=== PATIENT | female | born 1935 | race African-American/Black ===

== ENCOUNTER 2017-06-28 19:30 | Inpatient (IN) | payer MEDICARE, BC ==
[~2017-06-28] VITALS: Ht 175.3 cm; Wt 57.2 kg
[~2017-06-28 19:30] MED LIST: ACET325T9 PO; CLIN150C14 PO; FERR-26 PO; FLUC100T7 PO; FLUT9.9S NS; Hydrocodone Bit/Acetaminophen PO; LISI-334 PO; LISI10TA PO; PRED20TA PO; SULF-143 PO; TRIA1TAB3 PO; Triamterene/Hydrochlorothiazid PO; VANC1VIA3 MC
--- NOTE | 2017-06-28 19:41 | ED.ADGEN ---
Past History Past Medical History: Hypertension, Other Past Surgical History: No Surgical History, Other Smoking: Non-smoker Alcohol Use: None Drug Use: None Adult General Chief Complaint Chief Complaint " I seen Dr. Walker today for this tickle cough... but it seemed to get worse tonight.. more short of breath.. and some nausea and vomiting..".." I am off the water pill since I had a gout out break about 2 weeks ago in my knee and Lt big toe...".. but my ankles as swelled up...." HPI HPI Patient is a 81 year old female who presents with above hx and complaints of dyspnea, cough, ankle edema, nausea and vomiting. Pt. not feeling well the last couple days. Pt. denies changes in exposures, , bad foods, travel or specific ill contacts. Pt. normally healthy. Pt. localize pain or discomfort in epigastric area. Pt. has had some changes in HTN meds recently. Pt. did note she has some ankle swelling recently. Review of Systems Review of Systems Constitutional: Denies fever or chills [] Eyes: Denies change in visual acuity, redness, or eye pain [] HENT: Denies nasal congestion or sore throat [] Respiratory:Hx. of cough and shortness of breath [] Cardiovascular: No additional information not addressed in HPI [] GI Hx. abdominal pain epigastric, nausea, vomiting,. Denies bloody stools or diarrhea [] : Denies dysuria or hematuria [] Musculoskeletal: Denies back pain or joint pain [] Integument: Denies rash or skin lesions [] Neurologic: Denies headache, focal weakness or sensory changes [] Endocrine: Denies polyuria or polydipsia [] All other systems were reviewed and found to be within normal limits, except as documented in this note. Family History Family History Non-contributory. Current Medications Current Medications Current Medications Medications (Trade) Dose Ordered Sig/[facility] Start Time Stop Time Status Last Admin Dose Admin Aspirin (Mariely Aspirin) 325 mg 1X ONCE 06/28/17 21:30 06/28/17 21:31 DC 06/28/17 21:56 325 MG Ondansetron HCl (Zofran) 8 mg 1X ONCE 06/28/17 20:30 06/28/17 20:31 DC 06/28/17 20:15 8 MG Allergies Allergies Allergies Coded Allergies Type Severity Reaction Last Updated Verified daptomycin Allergy Unknown 01/13/15 Yes vancomycin Allergy Unknown Rash 01/13/15 Yes Physical Exam Physical Exam Constitutional: Well developed, well nourished,in mild distress, non-toxic appearance. [] HENT: Normocephalic, atraumatic, bilateral external ears normal, oropharynx moist, no oral exudates, nose normal. [] Eyes: PERRLA, EOMI, conjunctiva normal, no discharge. [] Neck: Normal range of motion, no tenderness, supple, no stridor. [] Cardiovascular:Tachycardia Heart rate regular rhythm, no murmur [] Lungs & Thorax: Bilateral breath sounds equal apex, few scattered wheezes, bibasilar crackles > lt. on auscultation [] Abdomen: Bowel sounds normal, soft, epigastric tenderness, no masses, no pulsatile masses. [] Skin: Warm, dry, no erythema, no rash. [] Back: No tenderness, no CVA tenderness. [] Extremities: No tenderness, no cyanosis, no clubbing, ROM intact, trace ankle edema. No cording appreciated. Arthritic changes. Neurologic: Alert and oriented X 3, normal motor function, normal sensory function, no focal deficits noted. [] Psychologic: Affect Anxious, judgement normal, mood normal. [] Current Patient Data Vital Signs Vital Signs Date Time Temp Pulse Resp B/P (MAP) Pulse Ox O2 Delivery O2 Flow Rate FiO2 06/28/17 19:56 117 142/76 (98) 06/28/17 19:54 98.0 20 97 Room Air Lab Results Laboratory Tests Test 06/28/17 20:10 White Blood Count 7.3 x10^3/uL (4.0-11.0) Red Blood Count 2.87 x10^6/uL (3.50-5.40) L Hemoglobin 9.6 g/dL (12.0-15.5) L Hematocrit 28.1 % (36.0-47.0) L Mean Corpuscular Volume 98 fL (79-100) Mean Corpuscular Hemoglobin 33 pg (25-35) Mean Corpuscular Hemoglobin Concent 34 g/dL (31-37) Red Cell Distribution Width 13.8 % (11.5-14.5) Platelet Count 233 x10^3/uL (140-400) Neutrophils (%) (Auto) 71 % (31-73) Lymphocytes (%) (Auto) 19 % (24-48) L Monocytes (%) (Auto) 8 % (0-9) Eosinophils (%) (Auto) 1 % (0-3) Basophils (%) (Auto) 0 % (0-3) Neutrophils # (Auto) 5.2 x10^3uL (1.8-7.7) Lymphocytes # (Auto) 1.4 x10^3/uL (1.0-4.8) Monocytes # (Auto) 0.6 x10^3/uL (0.0-1.1) Eosinophils # (Auto) 0.1 x10^3/uL (0.0-0.7) Basophils # (Auto) 0.0 x10^3/uL (0.0-0.2) Prothrombin Time 11.3 SEC (9.4-11.4) Prothrombin Time INR 1.1 (0.9-1.1) PTT 24 SEC (23-33) D-Dimer (Kelly) 2.03 mg/L (0.00-0.50) H Sodium Level 145 mmol/L (136-145) Potassium Level 4.0 mmol/L (3.5-5.1) Chloride Level 111 mmol/L (98-107) H Carbon Dioxide Level 21 mmol/L (21-32) Anion Gap 13 (6-14) Blood Urea Nitrogen 27 mg/dL (7-20) H Creatinine 1.3 mg/dL (0.6-1.0) H Estimated GFR (Cockcroft-Gault) 47.3 BUN/Creatinine Ratio 21 (6-20) H Glucose Level 140 mg/dL (70-99) H Calcium Level 9.2 mg/dL (8.5-10.1) Magnesium Level 1.9 mg/dL (1.8-2.4) Total Bilirubin 0.4 mg/dL (0.2-1.0) Aspartate Amino Transferase (AST) 36 U/L (15-37) Alanine Aminotransferase (ALT) 79 U/L (14-59) H Alkaline Phosphatase 111 U/L (46-116) Creatine Kinase 144 U/L (26-192) Creatine Kinase MB (Mass) 1.4 ng/mL (0.0-3.6) Creatine Kinase MB Relative Index 1.0 % (0-4) Troponin I Quantitative 0.151 ng/mL (0-0.055) H [id number]-[id number]-Type Natriuretic Peptide 8763 pg/mL (0-449) H Total Protein 6.8 g/dL (6.4-8.2) Albumin 3.6 g/dL (3.4-5.0) Albumin/Globulin Ratio 1.1 (1.0-1.7) Lipase 94 U/L (73-393) EKG EKG I interpretation EKG shows a sinus tachycardia at 108. There is some occasional PAC and some nonspecific anterior lateral strain.[] Radiology/Procedures Radiology/Procedures My interpretation of chest x-ray shows cardiomegaly. Some increased cephalization. Left lower pleural thickening and possible infiltrate./ fluid. No free air under the diaphragm. Nonspecific bowel gas pattern. Degenerative joint changes.[] Course & Med Decision Making Course & Med Decision Making Pertinent Labs and Imaging studies reviewed. (See chart for details) Discussed presentation, testing and tx. plan with Dr. Chao- - admit for further eval and tx. [] Final Impression Final Impression 1. Dyspnea[] 2. Nausea and vomiting 3. CHF 4. Anemia 5. Elevated Trop 6. Elevated D-dimer 7. Elevated ALT 8. DM 9. Elevated Creat. 10. Hx. of UTI under Tx- Macrodantin 100 bid Problems: Dragon Disclaimer Dragon Disclaimer This electronic medical record was generated, in whole or in part, using a voice recognition dictation system. CHIQUI FONTANEZ MD Jun 28, 2017 19:41
[2017-06-28] MEDS ORDERED: ONDANSETRON PF 4 MG/2 ML VIAL. ONE (20:05)
[2017-06-28] MEDS ORDERED: ONDANSETRON PF 4 MG/2 ML VIAL. IV ONE (20:30)
[2017-06-28 20:44] LABS: BASO % 0 % (0-3); EOS # 0.1 x10^3/uL (0.0-0.7); EOS % 1 % (0-3); HEMATOCRIT 28.1 % (36.0-47.0); HEMOGLOBIN 9.6 g/dL (12.0-15.5); LYMPH # 1.4 x10^3/uL (1.0-4.8); LYMPH % 19 % (24-48); MEAN CORPUSCULAR HEMOGLOBIN 33 pg (25-35); MEAN CORPUSCULAR HGB CONC 34 g/dL (31-37); MEAN CORPUSCULAR VOLUME 98 fL (79-100); MONO # 0.6 x10^3/uL (0.0-1.1); MONO % 8 % (0-9); NEUT # 5.2 x10^3uL (1.8-7.7); NEUT % 71 % (31-73); PLATELET COUNT 233 x10^3/uL (140-400); RED BLOOD COUNT 2.87 x10^6/uL (3.50-5.40); RED CELL DISTRIBUTION WIDTH 13.8 % (11.5-14.5); WHITE BLOOD COUNT 7.3 x10^3/uL (4.0-11.0)
[2017-06-28 21:04] LABS: ALBUMIN 3.6 g/dL (3.4-5.0); ALBUMIN/GLOBULIN RATIO 1.1 (1.0-1.7); CALCIUM 9.2 mg/dL (8.5-10.1); CREATININE 1.3 mg/dL (0.6-1.0); GFR 47.3; MAGNESIUM 1.9 mg/dL (1.8-2.4); TOTAL BILIRUBIN 0.4 mg/dL (0.2-1.0); TOTAL PROTEIN 6.8 g/dL (6.4-8.2)
[2017-06-28] MEDS ORDERED: ASPIRIN 325 MG TABLET PO ONE (21:30)
[2017-06-28] MEDS ORDERED: ENOXAPARIN ** NOTE DOSE ** SYRINGE SQ ONE (22:00)
[2017-06-28] MEDS ORDERED: FUROSEMIDE 40 MG/4 ML VIAL IVP ONE (22:00)
[2017-06-28] MEDS ORDERED: ALLO100T PO (22:15)
[2017-06-28] MEDS ORDERED: NITR100C63 PO (22:15)
[2017-06-28] MEDS ORDERED: LISI-334 PO (22:16)
[2017-06-28] MEDS ORDERED: MULTIVITAMIN PO (22:26)
[2017-06-28] MEDS ORDERED: CHOL10003 PO (22:26)
[2017-06-28] MEDS ORDERED: OMEP40CA5 PO (22:26)
[2017-06-28] MEDS ORDERED: [UNRECOGNIZED DRUG - OTHER] PO (22:26)
[2017-06-28] MEDS ORDERED: COLC0.6T34 PO (22:26)
[2017-06-28] MEDS ORDERED: iron OTC PO (22:28)
[2017-06-28 22:52] LABS: BACTERIA,URINE 0 /HPF (0-FEW); BILIRUBIN,URINE NEG (NEG); CLARITY,URINE HAZY; COLOR,URINE YELLOW; GLUCOSE,URINE NEG (NEG); NITRITE,URINE NEG (NEG); UROBILINOGEN,URINE 0.2 mg/dL (0.2 mg/dL); WBC,URINE 20-40 /HPF (0-4)
[2017-06-28 22:53] LABS: HYALINE CASTS, URINE FEW /HPF
[2017-06-28 22:54] LABS: BARBITURATES NEG (NEG); BENZODIAZEPINES NEG (NEG); CANNABINOIDS NEG (NEG); COCAINE NEG (NEG); METHADONE NEG (NEG); OPIATES NEG (NEG); PHENCYCLIDINE NEG (NEG)
[2017-06-28 22:55] LABS: AMPHETAMINE/METHAMPHETAMINE NEG (NEG)
[2017-06-28 23:29] VITALS: BP 108/71
[2017-06-28] MEDS ORDERED: levoFLOXacin 500 MG TABLET PO ONE (23:45)
--- NOTE | 2017-06-29 01:38 | RAD ---
Bilateral lower extremity venous Doppler: Reason for examination: Elevated d-dimer. Abdominal pain. Urinary tract infection. No leg complaints. The right and left lower extremity venous systems were evaluated from the common femoral and greater saphenous veins distally to the calf veins with grayscale imaging, color-flow imaging and spectral analysis. There is normal blood flow. No deep venous thrombosis is seen in either lower extremity. There is normal response of the venous systems to compression and augmentation. IMPRESSION: No deep venous thrombosis in the right or left lower extremity. Electronically signed by: Pia Andres MD (06/29/2017 1:35 AM) [facility] [id number]
[2017-06-29 04:50] VITALS: BP 108/71
--- NOTE | 2017-06-29 05:26 | EKG ---
[address] [address] Test Date: 2017-06-28 Test Time: 20:41:02 Pat Name: ANNA PALACIO Department: Room: 109 A Gender: F Jacker: ADAMS : 1935 Requested By: CHIQUI FONTANEZ Order Number: [id number] Reading MD: Darrell Johnson MD Measurements Intervals [place] Rate: 108 P: 47 NM: 146 QRS: 35 QRSD: 86 T: 101 QT: 318 QTc: 430 Interpretive Statements SINUS TACHYCARDIA ATRIAL PREMATURE COMPLEX(ES) Electronically Signed On 06-30-2017 12:38:33 [employer] by Darrell Johnson MD
[2017-06-29 05:49] VITALS: BP 103/72
[2017-06-29] MEDS: COLCHICINE 0.6 MG TABLET PO SCH ×2 (08:07→19:57)
[2017-06-29] MEDS: PANTOPRAZOLE 40 MG TABLET. PO SCH (08:07)
[2017-06-29] MEDS: CHOLECALCIFEROL (VITAMIN D3) 1,000 UNIT TABLET PO SCH (08:07)
[2017-06-29] MEDS: MULTIVITAMIN with MINERAL TABLET. PO SCH (08:07)
[2017-06-29] MEDS: ALLOPURINOL 100 MG TABLET. PO SCH (08:07)
[2017-06-29] MEDS: LISINOPRIL 20 MG TABLET PO SCH (08:08)
[2017-06-29 08:09] LABS: BASO % 0 % (0-3); EOS # 0.1 x10^3/uL (0.0-0.7); EOS % 1 % (0-3); HEMOGLOBIN 8.9 g/dL (12.0-15.5); LYMPH # 1.3 x10^3/uL (1.0-4.8); LYMPH % 24 % (24-48); MEAN CORPUSCULAR HEMOGLOBIN 34 pg (25-35); MEAN CORPUSCULAR HGB CONC 34 g/dL (31-37); MEAN CORPUSCULAR VOLUME 98 fL (79-100); MONO # 0.5 x10^3/uL (0.0-1.1); MONO % 9 % (0-9); NEUT # 3.6 x10^3uL (1.8-7.7); NEUT % 65 % (31-73); PLATELET COUNT 200 x10^3/uL (140-400); RED BLOOD COUNT 2.66 x10^6/uL (3.50-5.40); RED CELL DISTRIBUTION WIDTH 13.3 % (11.5-14.5); WHITE BLOOD COUNT 5.6 x10^3/uL (4.0-11.0)
[2017-06-29 08:25] LABS: ALBUMIN 3.1 g/dL (3.4-5.0); CALCIUM 9.1 mg/dL (8.5-10.1); CREATININE 1.3 mg/dL (0.6-1.0); GFR 47.3; POTASSIUM 4.2 mmol/L (3.5-5.1); TOTAL BILIRUBIN 0.4 mg/dL (0.2-1.0); TOTAL PROTEIN 6.1 g/dL (6.4-8.2)
--- NOTE | 2017-06-29 08:31 | RAD ---
ABDOMEN SUPINE UPRIGHT History:Nausea and vomiting, pain at the diaphragm for 2 days Comparison: 01/13/2015 Findings:Single supine and upright views of the abdomen are submitted. There is mild blunting of the right costophrenic sulcus and very minimally on the left, likely atelectasis left lung base. No free air is identified. There is overall nonobstructive bowel gas pattern. There is multilevel lumbar degenerative disc disease and spondylosis. Impression: 1.There are suspected trace pleural effusions and left basilar atelectasis. 2. There is a nonobstructive bowel gas pattern. 3. There is multilevel lumbar degenerative disc disease and spondylosis.
--- NOTE | 2017-06-29 08:38 | RAD ---
Single view chest History:Dyspnea, nausea for 2 days, pain hemidiaphragm An AP view of the chest is submitted. Comparison: 01/13/2015. Findings: There is now mild blunting of the costophrenic sulci bilaterally, also mild airspace opacity left lung base. There is also some questionable subtle airspace opacity of the right upper lobe. Cardiac silhouette is within normal limits given technique. No pneumothorax is identified. Impression: 1. There are suspected trace pleural effusions bilaterally, mild left base airspace opacity and some questionable subtle right upper lobe airspace opacity.
[2017-06-29 10:51] VITALS: BP 82/60
[2017-06-29] MEDS ORDERED: ENOXAPARIN 30 MG/0.3 ML DISP.SYRIN. SQ SCH (14:00)
--- NOTE | 2017-06-29 15:00 | HP ---
ADMIT DATE: 06/28/2017 HISTORY OF PRESENT ILLNESS: The patient is an 81-year-old female patient who came to the Emergency Room complaining of cough that has apparently worsened overnight. She has also some more shortness of breath, some nausea and vomiting. She apparently stopped taking her hydrochlorothiazide as she had gouty flareup about 2 weeks ago in her knee and left big toe; however, her ankles became swollen up again. She also complained that she has also some localized pain and discomfort mostly in the epigastric area and was extensively investigated in the Emergency Room. Her lab work showed that her B-type natriuretic peptide was elevated at 8763. Her troponin was elevated at 0.151. She has chronic anemia due to normochromic normocytic. However, her white cell count and platelets were normal and apparently has had a chest x-ray as her D-dimer was elevated at 2.03 mg/dL. She has a chest x-ray, which showed there are suspected trace of pleural effusion bilaterally, mild left base airspace opacity, and some questionable subtle right upper lobe airspace opacity. The cardiac silhouette is within normal limits given technique. No pneumothorax is identified. She has a Doppler ultrasound of both lower extremities that was negative for DVT and was admitted and was continued on Lovenox as well as was given 20 mg of Lasix, aspirin, and levofloxacin was continued with her other medication except her hydrochlorothiazide and triamterene. PAST MEDICAL HISTORY: Significant for hypertension, gastroesophageal reflux disease, thyroid nodule, longstanding iron deficiency anemia. PAST SURGICAL HISTORY: Significant for left inguinal hernia repair. ALLERGIES: She is allergic now to vancomycin and daptomycin. FAMILY HISTORY: Positive for anemia in her sister and one of her brothers of myocardial infarction. One of her sisters of myocardial infarction. One of her brothers in motor vehicle accident. Her father at the age of 77 because of myocardial infarction. Mother at the age of 82 because of myocardial infarction. SOCIAL HISTORY: She lives with her . She is a smoker at her anger age, but has not smoked for years. She does not drink alcohol or do any recreational drugs. 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 She works with her daughter. REVIEW OF SYSTEMS: The patient denied any blurring of vision, cataract, glaucoma, or macular degeneration. Denied any earache, tinnitus, or sensorineural deafness. Denied any nosebleeds, stuffy nose, or postnasal drip. Did complain of nausea and vomiting and has also some epigastric pain and swelling of his legs and also some shortness of breath. She did also complain of chest tightness and wheezing; however, she denied any dysuria, frequency or hematuria. Denied any chills, rigors, or fever. Denied any dizziness, lightheadedness, or vertigo. PHYSICAL EXAMINATION: GENERAL: On arrival to the Emergency Room, she was pale, but no jaundice, cyanosis, or thyromegaly. No jugular venous distension. Mild bilateral limb edema. VITAL SIGNS: Her heart rate was 116, blood pressure 142/79, her temperature was 98, respiratory rate 20, and oxygen saturation was 98%. HEAD, EYES, EARS, NOSE AND THROAT: Showed normocephalic, atraumatic. NECK: Supple. HEART: Showed normal first and second heart sound with no gallop, rub, or murmur. CHEST: Clear to auscultation. No crepitation or rhonchi. Apparently, she has scattered wheezing and bibasilar crackles on auscultation. ABDOMEN: Soft, nontender. No guarding or rigidity. Mild epigastric tenderness. No pulsatile masses. SKIN: Warm and dry. EXTREMITIES: All peripheral pulses are easily palpable. There is no clubbing, but mild bilateral ankle edema. NEUROLOGIC: She was awake, alert, oriented in time, place, and person. Cranial nerves intact. She moves extremities without difficulty. LABORATORY DATA: Her lab work while in the Emergency Room showed that her white cell count was 7300, hemoglobin 9.6, hematocrit 28.1, MCV 98 and platelet count of 233,000 with normal manual differential. Her chemistry showed a serum sodium of 145, potassium 4, chloride 111, bicarbonate 21, anion gap of 13, BUN 27, creatinine 1.3, estimated GFR was 47 mL per minute. Her glucose was 140. Calcium was 9.2, magnesium 1.9. Total bilirubin, AST, ALT, alkaline phosphatase were normal. Total protein 6.8, albumin 3.6. Her first set of cardiac enzyme showed troponin to be 0.151, B-type natriuretic peptide was 8763. Serum lipase was 94. TSH was 1.2. Her prothrombin time was 11.3, INR 1.1, aPTT was 24. D-dimer was 2. Urinalysis showed the urine was yellow, hazy with a pH of 5.5, specific gravity of 1.005. The urine was negative for protein, glucose, ketones. There was trace of blood, negative for nitrite, trace of leukocyte esterase, 1-2 rbc's, 20-40 wbc's, but no bacteria. Her toxicology screen was negative for opiates, methadone, barbiturates, phencyclidine, amphetamine, methamphetamine, benzodiazepine, cocaine, and cannabinoids as well as alcohol. Her chest x-ray showed there are suspected areas of trace pleural effusion bilaterally, mild left basilar airspace opacity and some questionable subtle right upper lobe airspace opacity. Abdominal x-ray showed that there are suspected trace pleural effusion, left basilar atelectasis. There is nonobstructive bowel gas pattern. There is multilevel lumbar degenerative disk disease and spondylosis. The venous Doppler ultrasound of both lower extremities showed no deep vein thrombosis in the right or left lower extremity. ASSESSMENT AND PLAN: The patient was admitted. She received Lovenox and 20 mg of Lasix as well as levofloxacin and aspirin and continued all her medication. She has 2 more sets of cardiac enzymes ordered basically to rule out myocardial infarction, congestive heart failure, elevated troponin, and elevated D-dimer. Obviously she has slightly elevated serum creatinine. She apparently was on treatment for UTI on Macrodantin 100 mg twice a day. CARMEN AMBROCIO MD DR: RENALDO/aiyana JOB#: [id number] / [id number]
[2017-06-29 15:18] VITALS: BP 98/62
--- NOTE | 2017-06-29 16:50 | RAD ---
Nuclear medicine ventilation/perfusion scan. History: Elevated d-dimer, epigastric pain. Comparison: Chest radiograph June 28, 2017. Technique: Ventilation portion was performed after inhalation of 14.7 mCi Xenon-133. Perfusion portion was performed after intravenous administration of 5.5 mCi Tc 99m MAA. Findings: Ventilation study is normal. There may be a leakage of the xenon from the equipment as extracorporeal activity can be seen on the anterior planar imaging. Perfusion study demonstrates no large wedge-shaped perfusion defects. There is mild heterogeneity of perfusion. Examination is considered low probability. Impression: Low probability VQ scan. Electronically signed by: Sandeep Ventura MD (06/29/2017 4:47 PM) [facility] [place]
[2017-06-29 19:36] VITALS: BP 90/65
--- NOTE | 2017-06-29 21:32 | PN ---
DATE: 06/29/2017 SUBJECTIVE: The patient is sitting in her chair comfortably in no apparent distress. She stated that she has no more shortness of breath and no more nausea and vomiting, no abdominal pain. Her swelling of her legs is much improved; however, her 2 more sets of cardiac enzymes showed that her troponin is slightly elevated at 0.153 and 0.147. Her brain-type natriuretic peptide was elevated at 8763. Her chest x-ray showed bilateral pleural effusion and airspace disease in the left side and right upper lobe. Given that she has a very strong family history of myocardial infarction in her brothers and parents, although all have it in their older age group. I recommended the patient should stay overnight and to consult the cardiology team. She probably has non-ST segment elevation myocardial infarction. Her EKG did not show any evidence of ST segment elevation or depression, but she does have diffuse ST-T changes. PHYSICAL EXAMINATION: GENERAL: When I examined her this afternoon, she looked well and was clearly in no apparent respiratory distress, slightly pale, but no jaundice, cyanosis or thyromegaly. No jugular venous distension. No limb edema. VITAL SIGNS: Her heart rate was 98, blood pressure was 82/60, temperature was 98.1, respiratory rate was 18 and oxygen saturation was 95%. HEAD, EYES, EARS, NOSE AND THROAT: Showed normocephalic, atraumatic. NECK: Supple. HEART: Showed normal first and second heart sounds with no gallop, rub or murmur. CHEST: Clear to auscultation. No crepitation or rhonchi. ABDOMEN: Distended, soft, nontender. No guarding or rigidity. No organomegaly. Hernial orifices intact. Bowel sounds normal. NEUROLOGIC: She was awake, alert, responding appropriately. Cranial nerves intact. She moves extremities without difficulty. She ambulates without assistance or assistive devices. Her intake over the last 24 hours was incompletely recorded, output was 750. LABORATORY DATA: This morning showed serum sodium of 146, potassium 4.2, chloride 112, bicarbonate 25, anion gap of 9, BUN 25, creatinine 1.3. Estimated GFR was 47. Her glucose was 105. Calcium was 9.1. Total bilirubin, AST, alkaline phosphatase were normal. ALT slightly elevated at 65. She has 2 more sets of cardiac enzymes that are slightly elevated at 0.153 and 0.147. Her total protein was 6.1. Albumin was 3.1. Her white cell count was 5600, hemoglobin 8.9, hematocrit 26, MCV 98 and platelet count of 200,000. PLAN: My plan is to consult the cardiology team, arrange for her to have V/Q scan to rule out possibility of pulmonary embolism given her presentation with chest pain, nausea, vomiting, shortness of breath and swelling of the legs. I will continue also on Lovenox and I will check her fasting lipid profile and decide on further management accordingly. CARMEN AMBROCIO MD DR: RENALDO/aiyana JOB#: [id number] / [id number]
[2017-06-29 23:13] VITALS: BP 107/71
[2017-06-30 05:14] VITALS: BP 98/68
[2017-06-30 06:03] LABS: CALCIUM 8.8 mg/dL (8.5-10.1); CREATININE 1.2 mg/dL (0.6-1.0); GFR 51.9; POTASSIUM 4.2 mmol/L (3.5-5.1); URIC ACID 4.4 mg/dL (2.6-6.0)
[2017-06-30] MEDS ORDERED: ASPIRIN 325 MG TABLET PO SCH (08:00)
[2017-06-30] MEDS: LISINOPRIL 20 MG TABLET PO SCH ×2 (08:40→09:00)
[2017-06-30] MEDS: MULTIVITAMIN with MINERAL TABLET. PO SCH (08:40)
[2017-06-30] MEDS: PANTOPRAZOLE 40 MG TABLET. PO SCH (08:40)
[2017-06-30] MEDS: COLCHICINE 0.6 MG TABLET PO SCH (08:41)
[2017-06-30] MEDS: CHOLECALCIFEROL (VITAMIN D3) 1,000 UNIT TABLET PO SCH (08:41)
[2017-06-30] MEDS: FUROSEMIDE 20 MG TABLET PO SCH ×2 (08:41→09:00)
[2017-06-30] MEDS: ALLOPURINOL 100 MG TABLET. PO SCH (08:41)
[2017-06-30 11:13] VITALS: BP 79/55
[2017-06-30] MEDS ORDERED: LISI10TA2 PO (13:16)
--- NOTE | 2017-06-30 21:43 | PDOC ---
PROVIDER NOTE PROVIDER NOTE PROVIDER NOTE CC: Chest discomfort. HPI Pleasant 81 y.o woman without significant coronary disease presented with symptoms classic for GERD including heart burn worsened after meals. Trop noted to be elevated but EKG unremarkable. Patient underwent stress in Aug 2016 which was WNL. Patient denies any exertional angina, changes to functional capacity. No dyspnea. No edema or other problems. No syncope or palpitations. Pmhx: htn gerd soc: no alcohol, tob or illicits famhx non contributory ROS - negative for 05/18 Allergies/meds reviewed. Cardiovascular: Normal heart sounds Respiratory: Normal breath sounds Abdomen: Soft, nontender, normal bowel sounds Mental Status: Alert, oriented X 3 Other: no edema Labs reviewed. noted elevated troponin. EKG reviewered. stress reviewed. Impression: 1. Elevated troponin of unclear etiology - possible type 2 stress mediated. 2. No angina or significant dyspnea. 3. GERD Plan 1. Most likely GERD. DIscussed with patient the elevated biomarkers. In light of the fact that she is doing well from a functional perspective and has had significant relief with PPI, will f/u on an outpt basis for re=eval of chest pain. Discussed with Dr. Chao. Tesfaye for DC from CV stand point. thank JOSE Guevara MD Jun 30, 2017 21:43
--- NOTE | 2017-07-01 11:40 | DS ---
DATE OF DISCHARGE: 06/30/2017 HISTORY OF PRESENT ILLNESS: The patient is an 81-year-old female patient who was admitted with some nausea and vomiting. She has also shortness of breath and cough. She also complained of pain and now discomfort in epigastric area and was admitted. Her troponin was slightly elevated. Her beta-natriuretic peptide was high also. Chest x-ray showed that she has what seems to be a congestive heart, bilateral pleural effusion and mild cardiomegaly. LABORATORY DATA: Showed her D-dimer was elevated and although her urinalysis showed she has leukocyturia, a trace of leukocyte esterase, there was no bacteria and her urine culture showed no growth in 18-24 hours. The patient was seen by Dr. Johnson and apparently has had a stress test done recently in 08/2016 at that time. There is no evidence of EKG changes, normal perfusion at stress and her ejection fraction was more than 65% and basically a decision was made to discharge her home. She had also bilateral lower extremity venous ultrasound, showed no evidence of DVT and lung perfusion ventilation scan, which was low probability for . PHYSICAL EXAMINATION: GENERAL: When I saw her this afternoon, she looked well and was sitting in the edge of the bed comfortably in no apparent distress. VITAL SIGNS: Her heart rate was 115, blood pressure was 79/55, temperature was 97.9, respiratory rate was 20, and oxygen saturation was 98%. HEAD, EYES, EARS, NOSE AND THROAT: Normocephalic, atraumatic. NECK: Supple. HEART: Showed normal first and second heart sounds. No gallop, rub or murmur. CHEST: Clear to auscultation and crepitation or rhonchi. ABDOMEN: Distended, soft, nontender. No guarding or rigidity. No organomegaly. Hernial orifice intact. Bowel sounds normal. NEUROLOGICAL: She was awake, alert, responding appropriately. All cranial nerves were intact. EXTREMITIES: She moves extremities without difficulty. She ambulates without assistive devices. Her intake was 820, output was 600. Her lab work as of yesterday morning showed white cell count 5600; hemoglobin 8.9; hematocrit 26; MCV 98 and platelet count 200,000. Her chemistry showed a serum sodium 147, potassium 4.2, chloride 111, bicarbonate 26, anion gap of 10, BUN 29, creatinine 1.2, estimated GFR was 52 mL per minute. Her glucose 107. Uric acid was only 4.4, calcium was 8.8. Her total protein was 6.1, albumin 3.1. Her triglycerides were 91, total cholesterol 133, LDL cholesterol was 75, VLDL was 18, and HDL cholesterol of 40 and the ratio was 3. Her TSH was normal at 1.20. Her prothrombin time was 11.3, INR 1.1, aPTT was 24. D-dimer was 2. Urinalysis showed that she has 20-40 wbc's per high-power field; however, her urine culture was negative. Toxic screen was negative. DISCHARGE MEDICATIONS: The patient will be discharged home to continue on allopurinol 200 mg once a day, cholecalciferol, vitamin D 3000 international unit once a day, colchicine 0.6 mg p.o. b.i.d., lisinopril 10 mg once a day, nitrofurantoin 100 mg twice a day, omeprazole 40 mg daily, ferrous sulfate 1 tablet once a day, multivitamin 1 tablet once a day, triamterene/hydrochlorothiazide 37.5/25 half a tablet once a day. I did cut down her lisinopril to 10 mg once a day. Her EKG showed that she has sinus arrhythmia, accounting for irregularity, but no evidence of atrial fibrillation or atrial flutter. I recommended the patient should follow with her primary care physician to make sure that her blood pressure is well controlled. I cut down lisinopril because she was hypotensive and feels somewhat dizzy and that she should follow also with Dr. Johnson as an outpatient and obviously if her symptom changes, she should come to the nearest Emergency Room. FINAL DISCHARGE DIAGNOSES: Recurrent bouts of nausea and vomiting, epigastric pain, resolved. She had 3 sets of cardiac enzymes, showed slightly elevated troponin; however, she was seen by the Cardiology team and stated that she does not need any further investigation as she has a stress test done in 08/14/2016. At that time showed no evidence of any stress-induced ischemia and her ejection fraction at time was 65%. Her fasting lipid profile was normal. She has gout, but uric acid is only 4.4. Other medical problems include hypertension; however, the patient was hypotensive and I did cut down on her lisinopril to 10 mg and advised her to follow up with her primary care physician as she stated that she is always hypotensive in the morning. She is on Maxzide and lisinopril and this might need further adjustment. CARMEN AMBROCIO MD DR: RENALDO/aiyana JOB#: [id number] / [id number]
--- NOTE | 2017-07-01 12:28 | EKG ---
[address] [address] Test Date: 2017-06-30 Test Time: 14:21:07 Pat Name: ANNA PALACIO Department: Room: 109 A Gender: F Advisory Intern: : 1935 Requested By: CARMEN AMBROCIO Order Number: [id number] Reading MD: Measurements Intervals [place] Rate: P: MA: QRS: QRSD: T: QT: QTc: Interpretive Statements
== END 2017-06-30 16:38 | disposition home or self-care (01) | DRG 392 ==
LOC: ER 19:30 → 1 SOUTH 21:30
PROVIDERS: ADMIT Internal Medicine; ATTEND Internal Medicine
DX: R10.13 Epigastric pain (principal); J90 Pleural effusion, not elsewhere classified; I95.9 Hypotension, unspecified; I11.0 Hypertensive heart disease with heart failure; I50.9 Heart failure, unspecified; K21.9 Gastro-esophageal reflux disease without esophagitis; D50.9 Iron deficiency anemia, unspecified; M10.9 Gout, unspecified; Z82.49 Family history of ischemic heart disease and other diseases of the circulatory system; Z87.891 Personal history of nicotine dependence; Z88.8 Allergy status to other drugs, medicaments and biological substances; Z87.440 Personal history of urinary (tract) infections
CPT/HCPCS: 36415; 71010; 74020; 78582; 80048; 80053; 80061; 80307; 81001; 82553; 82947; 83690; 83735; 83880; 84443; 84484; 84550; 85025; 85379; 85610; 85730; 87086; 93005; 93970; 96372; 96374; 96375; A9540; A9558; J1650; J1940; J2405; 99285-25; G0479

== ENCOUNTER 2017-07-14 04:41 | Emergency (ER) | payer MEDICARE, BC ==
[~2017-07-14] VITALS: Ht 175.3 cm; Wt 54.4 kg
[~2017-07-14 04:41] MED LIST changes: +ALLO100T PO; +CHOL10003 PO; +COLC0.6T34 PO; +LISI10TA2 PO; +MULTIVITAMIN PO; +NITR100C63 PO; +OMEP40CA5 PO; +[UNRECOGNIZED DRUG - OTHER] PO; +iron OTC PO
--- NOTE | 2017-07-14 05:07 | PHYS DOC ---
Text Text Yessenia was seen on transition of care from Dr. Francisco. Her labs showed an elevated troponin and worsening renal failure. Cardiology was contacted and recommended transfer to [place] for further management. She developed irregular tachycardia on the kaiawhina was contacted again. Digoxin 0.5 mg IV was given at the direction of cardiology. She was transferred in stable condition. (MARSHALL LITTLE MD) General Chief Complaint: COUGH Stated Complaint: COUGH Time Seen by MD: 04:50 Source: patient, old records Exam Limitations: no limitations Problems: (ASIA FRANCISCO DO) Time Seen by MD: 06:06 Problems: (MARSHALL LITTLE MD) History of Present Illness Initial Comments Patient is an 81-year-old female who comes to the ED complaining of cough Patient states that for the past few weeks she's had worsening dry cough with dyspnea on exertion. She's had a cough described as dry and rattling, and lower chest/upper abdominal "tightness" described as like a band wrapping around anteriorly. Her daughter is at the bedside she states that she's noticed that lately very little activity will cause the patient to have to stop to catch her breath. The patient denies any fever chills or body aches and no other chest pain arm or neck symptoms or complaints, no new leg swelling nausea or vomiting. This morning she was feeling very weak and became concerned feeling as if she couldn't catch her breath and was brought for evaluation by her daughter. On arrival the patient's vital signs are stable she is afebrile with heart rate running in the 60s to 70s satting 100% on room air despite still feeling short of breath. Patient lives alone and her spouse is in [place], she has a daughter who lives locally who checks in on her. Patient was admitted to this hospital June 28 and discharge June 30 with dyspnea and abdominal pain, ultimately her abdominal pain and vomiting were attributed to exacerbation of GERD symptoms and the patient was also found to be symptomatic with congestive heart failure. At that time she had been off her diuretics due to an exacerbation of gout. Patient had an unremarkable stress test August 14, 2016 with an EF of 65% Timing/Duration: getting worse, other (several weeks) Severity: severe Modifying Factors: worse with movement, improves with rest Associated Symptoms: cough, malaise, shortness of breath, weakness (ASIA FRANCISCO DO) Allergies: Coded Allergies: daptomycin (Verified Allergy, Unknown, 01/13/15) vancomycin (Verified Allergy, Unknown, Rash, 01/13/15) Past Medical History Medical History: hypertension, other (GERD, thyroid nodule, iron deficiency anemia, congestive heart failure, sinus arrhythmia) Surgical History: other (left inguinal herniorrhaphy) (ASIA FRANCISCO DO) Social History Smoker: quit greater than 1 year Alcohol: none Drugs: none (ASIA FRANCISCO DO) Review of Systems Constitutional: denies chills, denies diaphoresis, denies fever, malaise, weakness Respiratory: cough, shortness of breath, denies wheezing Cardiovascular: see HPI, denies palpitations, denies syncope Gastrointestinal: see HPI, denies diarrhea, denies nausea, denies vomiting Genitourinary: denies dysuria, denies frequency, denies hematuria Musculoskeletal: see HPI, denies back pain, denies neck pain Psychiatric/Neurological: denies headache, denies numbness, denies paresthesia , denies weakness Hematologic/Lymphatic: denies blood clots, denies easy bleeding, denies easy bruising (ASIA FRANCISCO DO) Respiratory: see HPI Cardiovascular: see HPI (MARSHALL LITTLE MD) Physical Exam General Appearance: WD/WN, no apparent distress Eyes: bilateral eye normal inspection, bilateral eye PERRL, bilateral eye EOMI Ear, Nose, Throat: hearing grossly normal, normal ENT inspection, normal pharynx Neck: non-tender, supple Respiratory: chest non-tender, normal breath sounds, no respiratory distress Cardiovascular: normal peripheral pulses, regular rate, rhythm Gastrointestinal: normal bowel sounds, soft Back: no CVA tenderness, no vertebral tenderness Extremities: normal range of motion, non-tender (1+ pitting LE edema) 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: 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 Little. See his documentation for results and further disposition. (ASIA FRANCISCO DO) Departure Disposition: 05 XFER OTHER Condition: STABLE ASIA FRANCISCO DO Jul 14, 2017 05:07 MARSHALL LITTLE MD Jul 14, 2017 07:59
[2017-07-14] MEDS ORDERED: ONDANSETRON PF 4 MG/2 ML VIAL. ONE (05:42)
[2017-07-14 05:47] LABS: BASO % 0 % (0-3); EOS # 0.1 x10^3/uL (0.0-0.7); EOS % 1 % (0-3); HEMOGLOBIN 10.8 g/dL (12.0-15.5); LYMPH # 1.4 x10^3/uL (1.0-4.8); LYMPH % 21 % (24-48); MEAN CORPUSCULAR HEMOGLOBIN 33 pg (25-35); MEAN CORPUSCULAR HGB CONC 34 g/dL (31-37); MEAN CORPUSCULAR VOLUME 98 fL (79-100); MONO # 0.6 x10^3/uL (0.0-1.1); MONO % 9 % (0-9); NEUT # 4.5 x10^3uL (1.8-7.7); NEUT % 68 % (31-73); PLATELET COUNT 245 x10^3/uL (140-400); RED BLOOD COUNT 3.27 x10^6/uL (3.50-5.40); RED CELL DISTRIBUTION WIDTH 13.9 % (11.5-14.5); WHITE BLOOD COUNT 6.6 x10^3/uL (4.0-11.0)
[2017-07-14 05:53] LABS: BILIRUBIN,URINE NEG (NEG); CLARITY,URINE HAZY; COLOR,URINE YELLOW; GLUCOSE,URINE NEG (NEG); NITRITE,URINE NEG (NEG); RBC,URINE 0 /HPF (0-2); UROBILINOGEN,URINE 0.2 mg/dL (0.2 mg/dL)
[2017-07-14 05:54] LABS: BACTERIA,URINE 0 /HPF (0-FEW); SQUAMOUS EPITHELIAL CELL,UR FEW /LPF; WBC,URINE RARE /HPF (0-4)
[2017-07-14] MEDS ORDERED: FAMOTIDINE 20 MG/2 ML VIAL IVP ONE (06:00)
[2017-07-14] MEDS ORDERED: ASPIRIN 81 MG TAB.CHEW PO ONE (06:00)
[2017-07-14] MEDS ORDERED: ONDANSETRON PF 4 MG/2 ML VIAL. IV ONE (06:00)
[2017-07-14 06:07] LABS: ALBUMIN 3.7 g/dL (3.4-5.0); ALBUMIN/GLOBULIN RATIO 1.1 (1.0-1.7); CALCIUM 9.5 mg/dL (8.5-10.1); CREATININE 1.5 mg/dL (0.6-1.0); GFR 40.1; POTASSIUM 4.4 mmol/L (3.5-5.1); TOTAL BILIRUBIN 0.4 mg/dL (0.2-1.0); TOTAL PROTEIN 7.2 g/dL (6.4-8.2)
--- NOTE | 2017-07-14 06:43 | EKG ---
[address] [address] Test Date: 2017-07-14 Test Time: 06:25:34 Pat Name: ANNA PALACIO Department: Room: Gender: F Supervisor Keymodule Assembly: ADAMS : 1935 Requested By: MARSHALL ELKINS Order Number: [id number] Reading MD: Darrell Johnson MD Measurements Intervals [place] Rate: 137 P: [place]: QRS: 43 QRSD: 82 T: 156 QT: 290 QTc: 439 Interpretive Statements ATRIAL FIBRILLATION WITH RVR NON-SPECIFIC ST/T CHANGES PVC Electronically Signed On 07-22-2017 11:57:20 HEALTH AND HUMAN PERFORMANCE PROFESSOR by Darrell Johnson MD
--- NOTE | 2017-07-14 06:44 | EKG ---
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
[2017-07-14] MEDS ORDERED: DIGOXIN IV 500 MCG/2 ML AMPUL. IV ONE (07:00)
--- NOTE | 2017-07-14 07:33 | RAD ---
PA and lateral chest. History: Short of breath, cough, epigastric discomfort PA and lateral views were taken of the chest. There is a possible small nodule in the upper outer right upper lobe. Close interval follow-up study would be of benefit. There is a small right pleural effusion. The heart is upper normal in size or mildly enlarged. There are no other infiltrates. Impression: 1. Possible small right upper lobe nodule. 2. Small right pleural effusion. 3. No other infiltrates.
[2017-07-14 08:00] VITALS: BP 99/72
== END 2017-07-14 08:00 | disposition short-term general hospital (02) ==
LOC: ER 04:41
DX: R05 Cough (principal); R06.00 Dyspnea, unspecified; R79.89 Other specified abnormal findings of blood chemistry; I11.0 Hypertensive heart disease with heart failure; I50.9 Heart failure, unspecified; K21.9 Gastro-esophageal reflux disease without esophagitis; Z86.2 Personal history of diseases of the blood and blood-forming organs and certain disorders involving the immune mechanism; Z87.891 Personal history of nicotine dependence; Z88.1 Allergy status to other antibiotic agents
CPT/HCPCS: 36415; 71020; 80053; 81001; 82550; 83690; 83880; 84484; 85025; 87086; 93005; 96374; 96375; 99285; J1160; J2405; S0028

== ENCOUNTER → 2018-10-28 | Outpatient (CLI) | payer MEDICARE, BC ==
[~2018-10-28] MED LIST changes: -FERR-26 PO; +FERR325T14 PO
--- NOTE | 2018-10-28 14:00 | CARD ---
MR#: [id number] Date of Study: 10/28/2018 Ordering Physician: BRISEIDA DENNIS, Referring Physician: BRISEIDA DENNIS Tech: Anaid Russell RDCS APPROVED REPORT EXAM: Two-dimensional and M-mode echocardiogram with Doppler and color Doppler. Other Information Quality : Good Rhythm : NSR INDICATION Paroxysmal Atrial Fibrillation 2D DIMENSIONS RVDd2.7 (2.9-3.5cm)Left Atrium(2D)3.3 (1.6-4.0cm) IVSd1.4 (0.7-1.1cm)Aortic Root(2D)2.6 (2.0-3.7cm) LVDd3.8 (3.9-5.9cm)LVOT Diameter2.0 (1.8-2.4cm) PWd0.9 (0.7-1.1cm)LVDs3.0 (2.5-4.0cm) FS (%) 21.7 %SV28.0 ml Aortic Valve AoV Peak Basilio.209.4cm/sAoV VTI42.1cm AO Peak GR.17.5mmHgLVOT Peak Basilio.104.9cm/s LVOT VTI 21.90cmAO Mean GR.11mmHg ALEXANDER (VMAX)1.96zk2ZJH (VTI)1.70cm2 Mitral Valve MV E Dewxqdjg28.5cm/sMV DECEL TRFP813km MV A Uejbtqrp77.9cm/sE/A Ratio0.7 Tricuspid Valve TR P. Ycmdukqp950nz/sRAP OXFLZZRI8grDy TR Peak Gr.88kzZsQSBO99eaRd Pulmonary Vein S1 Fhjezgwj11.1cm/sD2 Hooillpp17.1cm/s LEFT VENTRICLE The left ventricle is normal size. There is mild concentric left ventricular hypertrophy. Left ventri hans systolic function is normal. The Ejection Fraction is 55%. There is normal LV segmental wall juice on. Transmitral Doppler flow pattern is Grade I-abnormal relaxation pattern. RIGHT VENTRICLE The right ventricle is normal size. The right ventricular systolic function is normal. ATRIA The left atrium size is normal. The right atrium size is normal. The interatrial septum is intact wit h no evidence for an atrial septal defect or patent foramen ovale as noted on 2-D or Doppler imaging. AORTIC VALVE The aortic valve is mildly thickened. Doppler and Color Flow revealed trace aortic regurgitation. Mil d aortic stenosis. MITRAL VALVE The mitral valve is normal in structure and function. There is no evidence of mitral valve prolapse. There is no mitral valve stenosis. Doppler and Color-flow revealed mild to moderate mitral regurgitat ion. TRICUSPID VALVE The tricuspid valve is normal in structure and function. Doppler and Color Flow revealed mild tricusp id regurgitation. There is mild pulmonary hypertension. The PA pressure was estimated at 30 mmHg. The re is no tricuspid valve stenosis. PULMONIC VALVE The pulmonic valve is not well visualized. Doppler and Color Flow revealed mild pulmonic valvular reg urgitation. There is no pulmonic valvular stenosis. GREAT VESSELS The aortic root is normal in size. The ascending aorta is normal in size. The IVC is normal in size a nd collapses >50% with inspiration. PERICARDIAL EFFUSION There is no evidence of significant pericardial effusion. Critical Notification Critical Value: No <Conclusion> The left ventricular systolic function is normal. The Ejection Fraction is 55%. There is normal LV segmental wall motion. Transmitral Doppler flow pattern is Grade I-abnormal relaxation pattern. Mild aortic stenosis. Trace aortic regurgitation. Mild to moderate mitral regurgitation. Mild tricuspid regurgitation. The PA pressure was estimated at 30 mmHg. There is no evidence of significant pericardial effusion. Signed by : Briseida Dennis, Electronically Approved : 10/28/2018 14:00:20
== END | disposition home or self-care (01) ==
LOC: ECHO 12:59
PROVIDERS: ATTEND Internal Medicine Cardiovascular Disease
DX: I08.8 Other rheumatic multiple valve diseases (principal); I27.20 Pulmonary hypertension, unspecified; I48.0 Paroxysmal atrial fibrillation; R00.8 Other abnormalities of heart beat
CPT/HCPCS: 93306

== ENCOUNTER → 2020-01-14 | Outpatient (CLI) | payer MEDICARE, BC ==
[~2020-01-14] MED LIST changes: +OMEP40CA45 PO; -OMEP40CA5 PO
--- NOTE | 2020-01-14 15:58 | RAD ---
PROCEDURE: KNEE LEFT 3V STUDY DATE: 01/14/2020 CLINICAL INDICATION / HISTORY: Reason: LT KNEE PAIN / Spl. Instructions: / History: . TECHNIQUE: AP, lateral, and tunnel views of the left knee. COMPARISON: No relevant comparisons currently available. FINDINGS: The osseous structures show generalized demineralization and joint space narrowing in both medial and lateral compartments with osteophytic spurring at the superior pole patella, and on the medial tibial plateau and femoral condyle as well as the lateral tibial plateau and femoral condyles. . No intra-articular loose bodies. The alignment is within normal limits. The soft tissues are unremarkable. No obvious joint effusion. No radio-opaque foreign bodies are identified. 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 No fracture or malalignment shown. Electronically signed by: Juan Carlos Ojeda MD (01/14/2020 3:55 PM) [id number]
== END | disposition home or self-care (01) ==
LOC: DXRAD 13:05
PROVIDERS: ATTEND Physician Assistant
DX: M17.12 Unilateral primary osteoarthritis, left knee (principal); M25.862 Other specified joint disorders, left knee
CPT/HCPCS: 73562

== ENCOUNTER → 2020-05-19 | Outpatient (CLI) | payer MEDICARE, BC ==
--- NOTE | 2020-05-19 14:39 | RAD ---
PROCEDURE: HIP LEFT 2V WITH PELVIS STUDY DATE: 05/19/2020 CLINICAL INDICATION / HISTORY: Reason: LEFT HIP PAIN / Spl. Instructions: / History: . TECHNIQUE:Three views of the left hip were obtained. COMPARISON: Left knee x-rays of 01/14/2020 FINDINGS: The osseous structures are normally mineralized. There is normal bony alignment present with the femoral heads well-seated within the acetabuli. There is no evidence of acute fracture or dislocation identified. There is mild hip joint space irregularity on the frog-leg lateral view and osteophytic spurring on the femoral head is present, consistent with degenerative change. The overlying soft tissues are grossly unremarkable. Incidental degenerative changes in the included lumbar spine are noted as well. IMPRESSION: Mild left hip degenerative changes. Otherwise negative left hip x-rays. Electronically signed by: Juan Carlos Ojeda MD (05/19/2020 2:36 PM) [id number]
== END ==
LOC: DXRAD 14:09
PROVIDERS: ATTEND Physician Assistant
DX: M16.12 Unilateral primary osteoarthritis, left hip (principal)
CPT/HCPCS: 73502

== ENCOUNTER → 2020-05-31 | Outpatient (CLI) | payer MEDICARE, BC ==
--- NOTE | 2020-05-31 14:04 | CARD ---
MR#: [id number] Date of Study: 05/31/2020 Ordering Physician: BRISEIDA DENNIS, Referring Physician: BRISEIDA DENNIS Tech: Anaid Russell RDCS APPROVED REPORT EXAM: Two-dimensional and M-mode echocardiogram with Doppler and color Doppler. Other Information Quality : Good INDICATION Atrial Fibrillation 2D DIMENSIONS RVDd2.9 (2.9-3.5cm)Left Atrium(2D)3.4 (1.6-4.0cm) IVSd1.0 (0.7-1.1cm)Aortic Root(2D)2.5 (2.0-3.7cm) LVDd4.0 (3.9-5.9cm)LVOT Diameter1.9 (1.8-2.4cm) PWd1.0 (0.7-1.1cm)LVDs3.3 (2.5-4.0cm) FS (%) 25.0 %SV28.9 ml LVEF(%)50.0 (>50%) Aortic Valve AoV Peak Basilio.211.6cm/sAoV VTI44.4cm AO Peak GR.17.9mmHgLVOT Peak Basilio.100.6cm/s LVOT VTI 22.11cmAO Mean GR.11mmHg ALEXANDER (VMAX)1.51wa4BAG (VTI)1.40cm2 Mitral Valve MV E Lucireho74.9cm/sMV DECEL SCAM219cd MV A Qtqqbjdw334.8cm/sE/A Ratio0.6 Tricuspid Valve TR P. Yjqaxgwx220ub/sRAP HKSKZPRX6bjLi TR Peak Gr.76ytOuMTRK64owTy Pulmonary Vein S1 Pcbdmarh99.1cm/sD2 Nssxlewr36.6cm/s LEFT VENTRICLE The left ventricle is normal size. There is normal left ventricular wall thickness. Left ventricle sy stolic function is normal. The Ejection Fraction is 55%. Septal motion consistent with conduction abn ormality. Transmitral Doppler flow pattern is Grade I-abnormal relaxation pattern. RIGHT VENTRICLE The right ventricle is normal size. The right ventricular systolic function is normal. ATRIA The left atrium size is normal. The right atrium size is normal. The interatrial septum is intact wit h no evidence for an atrial septal defect or patent foramen ovale as noted on 2-D or Doppler imaging. AORTIC VALVE The aortic valve is calcified and displays decreased opening. The aortic valve appears quadricuspid. Doppler and Color Flow revealed no significant aortic regurgitation. Calculated aortic valve area is 1.7 cm2 with maximum pressure gradient of 18 mmHg and mean pressure gradient of 11 mmHg. Doppler and color-flow analysis revealed mild aortic stenosis. MITRAL VALVE The mitral valve is calcified but opens well. There is no evidence of mitral valve prolapse. There is no mitral valve stenosis. Doppler and Color-flow revealed mild mitral regurgitation. TRICUSPID VALVE The tricuspid valve is normal in structure and function. Doppler and Color Flow revealed trace tricus pid regurgitation. The PA pressure was estimated at 25 mmHg. There is no tricuspid valve stenosis. PULMONIC VALVE The pulmonic valve is not well visualized. Doppler and Color Flow revealed mild pulmonic valvular reg urgitation. There is no pulmonic valvular stenosis. GREAT VESSELS The aortic root is normal in size. The ascending aorta is normal in size. The IVC is normal in size a nd collapses >50% with inspiration. PERICARDIAL EFFUSION There is no evidence of significant pericardial effusion. Critical Notification Critical Value: No <Conclusion> Left ventricle systolic function is normal. The Ejection Fraction is 55%. Septal motion consistent with conduction abnormality. Transmitral Doppler flow pattern is Grade I-abnormal relaxation pattern. Mild aortic stenosis. Mild mitral regurgitation. Trace tricuspid regurgitation. The PA pressure was estimated at 25 mmHg. There is no evidence of significant pericardial effusion. Signed by : Briseida Dennis, Electronically Approved : 05/31/2020 14:03:46
== END ==
LOC: CARD 12:59
PROVIDERS: ATTEND Internal Medicine Cardiovascular Disease
DX: I08.8 Other rheumatic multiple valve diseases (principal); I48.0 Paroxysmal atrial fibrillation
CPT/HCPCS: 93306

== ENCOUNTER → 2020-06-02 | Outpatient (CLI) | payer MEDICARE, BC ==
--- NOTE | 2020-06-02 15:25 | RAD ---
Two-view right knee HISTORY: Status post patellar fracture AP lateral views the right knee are obtained There has been prior right knee total arthroplasty. The femoral tibial components are aligned and well seated. The visualized osseous structures appear grossly intact. There is postsurgical changes of the patella. IMPRESSION: Status post right knee total arthroplasty. No acute findings. Electronically signed by: Gold Malave III, MD (06/02/2020 3:22 PM) [facility]
== END ==
LOC: DXRAD 11:33
PROVIDERS: ATTEND Physician Assistant
DX: S82.001A Unspecified fracture of right patella, initial encounter for closed fracture (principal); Z96.651 Presence of right artificial knee joint; X58.XXXA Exposure to other specified factors, initial encounter; Y93.89 Activity, other specified; Y92.89 Other specified places as the place of occurrence of the external cause; Y99.8 Other external cause status
CPT/HCPCS: 73560

== ENCOUNTER → 2020-10-03 | Outpatient (CLI) | payer MEDICARE, BC ==
[~2020-10-03] MED LIST changes: -CLIN150C14 PO; +CLIN150C15 PO; -LISI-334 PO; +LISI10TA16 PO; -LISI10TA2 PO; +LISI20TA18 PO
--- NOTE | 2020-10-03 11:14 | RAD ---
ADDENDUM #1 Addendum: A sunrise view was subsequently acquired. It shows a lucency through the superficial aspect of the pa tella, suspicious for a vertically oriented fracture. Correlate with clinical exam. Patellofemoral alfredito int space narrowing is also apparent. Electronically signed by: Juan Carlos Ojeda MD (10/07/2020 11:43 AM) [id number] ORIGINAL REPORT Right knee 2 views INDICATION: Right knee pain COMPARISON: 06/02/2020 right knee x-rays FINDINGS: Stable anatomic alignment status post right knee arthroplasty. No periprosthetic lucency or acute fracture. There are ossific densities along the inferior aspect of the patella that could represent soft tissue ossification No joint effusion. No soft tissue swelling or abnormal soft tissue gas. There is circumscribed ovoid lucency in the posterior knee measuring 1.8 cm long that could represent a loose body or calcification in the popliteal artery. IMPRESSION: Right knee arthroplasty with no acute osseous abnormality. Ossific densities at the inferior pole of the patella could represent patellar tendinopathy. Correlat e clinically. Electronically signed by: Juan Carlos Ojeda MD (10/03/2020 11:12 AM) [id number]
== END ==
LOC: RAD 10:19
PROVIDERS: ATTEND Physician Assistant
DX: S82.001A Unspecified fracture of right patella, initial encounter for closed fracture (principal); M85.88 Other specified disorders of bone density and structure, other site; X58.XXXA Exposure to other specified factors, initial encounter; Y92.89 Other specified places as the place of occurrence of the external cause; Y93.89 Activity, other specified; Y99.8 Other external cause status; Z96.651 Presence of right artificial knee joint
CPT/HCPCS: 73560

== ENCOUNTER → 2021-05-30 | Outpatient (CLI) | payer MEDICARE, BC ==
[~2021-05-30] MED LIST changes: -CLIN150C15 PO; +CLIN150C16 PO; -OMEP40CA45 PO; +OMEP40CA7 PO; -VANC1VIA3 MC; +VANC1VIA37 MC
--- NOTE | 2021-05-31 08:51 | CARD ---
MR#: [id number] Date of Study: 05/30/2021 Ordering Physician: BRISEIDA DENNIS, Referring Physician: Samantha PEREZ: [facility] APPROVED REPORT EXAM: Two-dimensional and M-mode echocardiogram with Doppler and color Doppler. Other Information Quality : AverageHR: 65bpm Rhythm : NSR INDICATION Atrial Fibrillation RISK FACTORS Hypertension Hyperlipidemia 2D DIMENSIONS Left Atrium(2D)3.2 (1.6-4.0cm)IVSd1.0 (0.7-1.1cm) Aortic Root(2D)2.9 (2.0-3.7cm)LVDd4.4 (3.9-5.9cm) LVOT Diameter1.8 (1.8-2.4cm)PWd1.0 (0.7-1.1cm) LVDs3.3 (2.5-4.0cm)FS (%) 26.0 % SV45.7 mlLVEF(%)51.3 (>50%) Aortic Valve AoV Peak Basilio.221.3cm/sAoV VTI44.8cm AO Peak GR.19.6mmHgLVOT Peak Basilio.91.6cm/s LVOT VTI 17.86cmAO Mean GR.12mmHg ALEXANDER (VMAX)1.41vj6VCT (VTI)1.10cm2 Mitral Valve MV E Qwdygqhz74.7cm/sMV E Peak Gr.5mmHg MV DECEL [id number] A Bxhctagj78.3cm/s MV E Mean Gr.1mmHgE/A Ratio0.6 Pulmonary Valve PV Peak Wvzxfbfk913.4cm/sPV Peak Grad.11mmHg Tricuspid Valve TR P. Iabhpxcw305jx/sTR Peak Gr.22mmHg Pulmonary Vein S1 Qxemgkvp08.4cm/sD2 Tllkkecu11.8cm/s LEFT VENTRICLE The left ventricle is normal size. There is mild concentric left ventricular hypertrophy. The left ve ntricular systolic function is mildly decreased. EF 40-45% There is mild global hypokinesis, septal m otion suggestive of conduction defect. Transmitral Doppler flow pattern is Grade I-abnormal relaxatio n pattern. No left ventricle thrombus noted on this study. There is no ventricular septal defect visu alized. There is no left ventricular aneurysm. There is no mass noted in the left ventricle. RIGHT VENTRICLE The right ventricle is normal size. There is normal right ventricular wall thickness. The right ventr icular systolic function is normal. ATRIA The left atrium is moderately dilated. The right atrium size is normal. The interatrial septum is int act with no evidence for an atrial septal defect or patent foramen ovale as noted on 2-D or Doppler i maging. AORTIC VALVE The aortic valve is calcified and displays decreased opening. Doppler and Color Flow revealed no sign ificant aortic regurgitation. There is mild valvular aortic stenosis based on doppler criteria, visua lly there appears to be moderate aortic stenosis. Calculated aortic valve area is 1.1 cm2 with maximu m pressure gradient of 19 mmHg and mean pressure gradient of 11 mmHg. There is no aortic valvular veg etation. MITRAL VALVE The mitral valve is thickened but opens well. There is no evidence of mitral valve prolapse. There is no mitral valve stenosis. Doppler and Color-flow revealed mild mitral regurgitation. TRICUSPID VALVE The tricuspid valve is normal in structure and function. Doppler and Color Flow revealed trace to mil d tricuspid regurgitation. The PA pressure was estimated at 27 mmHg. There is no tricuspid valve prol apse or vegetation. There is no tricuspid valve stenosis. PULMONIC VALVE Doppler and Color Flow revealed no pulmonic valvular regurgitation. There is no pulmonic valvular jessenia nosis. GREAT VESSELS The aortic root is normal in size. The ascending aorta is normal in size. The IVC is normal in size a nd collapses >50% with inspiration. PERICARDIAL EFFUSION There is no pleural effusion. There is no evidence of significant pericardial effusion. Critical Notification Critical Value: No <Conclusion> The left ventricular systolic function is mildly decreased. EF 40-45% There is mild global hypokinesis, septal motion suggestive of conduction defect. The aortic valve is calcified and displays decreased opening. There is mild valvular aortic stenosis based on doppler criteria, visually there appears to be modera te aortic stenosis. Calculated aortic valve area is 1.1 cm2 with maximum pressure gradient of 19 mmH g and mean pressure gradient of 11 mmHg. Signed by : Darrell Johnson, Electronically Approved : 05/31/2021 08:50:36
== END ==
LOC: ECHO 13:51
PROVIDERS: ATTEND Internal Medicine Cardiovascular Disease
DX: I08.3 Combined rheumatic disorders of mitral, aortic and tricuspid valves (principal); I48.0 Paroxysmal atrial fibrillation
CPT/HCPCS: 93306

== ENCOUNTER → 2021-09-04 | Outpatient (CLI) | payer MEDICARE, BC ==
--- NOTE | 2021-09-04 15:33 | RAD ---
EXAM: XR FOOT_RIGHT 2 VIEWS 09/04/2021 1:44 PM CLINICAL INDICATION: Pain for one month, grade 2 injury COMPARISON: None TECHNIQUE: 2 views of the right great toe FINDINGS: No acute fracture. Alignment is normal. Joint spaces are maintained. No erosions. No soft tissue abnormality. IMPRESSION: No acute osseous abnormality. Electronically signed by: Pily Curran MD (09/04/2021 3:31 PM) [id number]
== END ==
LOC: RAD 13:33
PROVIDERS: ATTEND Specialist
DX: M79.674 Pain in right toe(s) (principal)
CPT/HCPCS: 73620